=== PATIENT | male | born 1960 | race Caucasian/White ===

== ENCOUNTER 2016-09-03 19:42 | Emergency (ER) | payer SELFPAY ==
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
[2016-09-03 20:06] LABS: BASOPHIL % 0.4 %; EOSINOPHIL # 0.1 K/uL (0.0-0.5); EOSINOPHIL % 1.3 %; HEMATOCRIT 46.9 % (37.0-53.0); IMMATURE GRANULOCYTE # 0.1 K/uL (0.0-0.3); IMMATURE GRANULOCYTE % 0.7 %; LYMPHOCYTE # 2.7 K/uL (0.8-4.0); LYMPHOCYTE % 38.3 %; MCH 31.1 pg (27.0-34.0); MCHC 34.1 gm/dL (32.0-36.5); MCV 91.2 fl (83.0-98.0); MONOCYTE # 0.4 K/uL (0.0-1.0); MONOCYTE % 5.9 %; MPV 9.9 fl (9.4-12.4); NEUTROPHIL # (ANC) 3.7 K/uL (1.4-9.0); NEUTROPHIL % 53.4 %; NRBC % 0 /100WBC (0-0.00); PLATELET COUNT 143 K/uL (150-450); RBC 5.14 M/uL (4.00-6.00); RDW-CV 13.2 % (11.9-14.6); WBC 6.9 K/uL (4.0-11.0)
[2016-09-03 20:35] LABS: BILIRUBIN URINE NEGATIVE (NEGATIVE); BLOOD URINE 10 /UL (NEGATIVE); COLOR URINE YELLOW (YELLOW); GLUCOSE URINE NEGATIVE (NEGATIVE); KETONE URINE NEGATIVE (NEGATIVE); LEUKOCYTES URINE NEGATIVE /UL (NEGATIVE); NITRITE URINE NEGATIVE (NEGATIVE); PROTEIN URINE NEGATIVE (NEGATIVE); TURBIDITY URINE CLEAR (CLEAR); UROBILINOGEN URINE NORMAL (NORMAL)
[2016-09-03 20:46] LABS: BACTERIA URINE NEGATIVE (NEGATIVE); EPITHELIAL URINE RARE #/HPF (NEGATIVE); RBC URINE 0-2 #/HPF (NEGATIVE); WBC URINE NEGATIVE #/HPF (NEGATIVE)
[2016-09-03 20:55] LABS: BARBITURATE NEGATIVE (NEGATIVE); COCAINE NEGATIVE (NEGATIVE); OPIATES NEGATIVE (NEGATIVE)
[2016-09-03 20:56] LABS: AMPHETAMINE NEGATIVE (NEGATIVE)
[2016-09-03 20:58] LABS: ALBUMIN 4.1 gm/dL (3.5-5.0); ANION GAP 14.4 (10.0-19.0); BLOOD UREA NITROGEN 11 mg/dL (6-24); CALCIUM 8.6 mg/dL (8.5-10.5); CHLORIDE 109 mMol/L (96-110); CO2 22 mMol/L (22-32); ESTIMATED GFR (MDRD EQUATION) > 60; POTASSIUM 3.4 mEq/L (3.7-5.1); SODIUM 142 mEq/L (135-145)
[2016-09-03 20:59] LABS: ALK PHOS 47 IU/L (33-138); ALT 77 IU/L (12-78); AST 53 IU/L (10-40); TOTAL BILIRUBIN 0.4 mg/dL (0.0-1.5)
[2016-09-03 21:00] LABS: CPK 351 IU/L (35-332)
[2016-09-06] MEDS ORDERED: HUMIBID LA (MU600 MG PO (11:26)
[2016-09-06] MEDS ORDERED: NORCO 5-325 TA1 EACH PO (11:27)
[2016-09-06] MEDS ORDERED: DELTASONE20 MG PO (11:27)
[2016-09-06] MEDS ORDERED: NEURONTIN300 MG PO (11:27)
== END 2016-09-03 21:28 | disposition disaster alternative care site (69) ==
LOC: GACC 19:42
PROVIDERS: Emergency Medicine
PROC: 0HQ0XZZ Repair Scalp Skin, External Approach (ICD-10-PCS; principal; 2016-09-03)
DX: S22.42XA Multiple fractures of ribs, left side, initial encounter for closed fracture (principal); S01.01XA Laceration without foreign body of scalp, initial encounter; F17.210 Nicotine dependence, cigarettes, uncomplicated; Z88.0 Allergy status to penicillin; Z98.890 Other specified postprocedural states; V59.9XXA Occupant (driver) (passenger) of pick-up truck or van injured in unspecified traffic accident, initial encounter; Y92.410 Unspecified street and highway as the place of occurrence of the external cause
CPT/HCPCS: G0480; J7030

== ENCOUNTER → 2016-09-04 | Outpatient (CLI) | payer SELFPAY ==
[~2016-09-04] MED LIST: DELTASONE20 MG PO; HUMIBID LA (MU600 MG PO; NEURONTIN300 MG PO; NORCO 5-325 TA1 EACH PO
== END | disposition disaster alternative care site (69) ==
LOC: GAMB 00:20
DX: R07.81 Pleurodynia (principal)
CPT/HCPCS: A0425; A0429